=== PATIENT | female | born 1980 | race Caucasian/White ===

== ENCOUNTER 2021-03-28 21:55 | Emergency (ER) | payer SELFPAY ==
--- NOTE | 2021-03-28 22:59 | EDM.PDOC ---
ED [facility] GENERAL MEDICAL PROBLEM - General Chief Complaint: Skin Complaint Stated Complaint: RASH Time Seen by Provider: 03/28/21 22:09 Source of Information: Reports: Patient History Limitations: Reports: No Limitations - History of Present Illness INITIAL COMMENTS - FREE TEXT/NARRATIVE: 40-year-old female presents with pruritic rash to bilateral hand. She ran out of her prednisone yesterday and is currently taking Zyrtec and triamcinolone cream for her rash. She has an appointment to see Dr. Jordi Coughlin (client services assistant) at [place] on Tuesday for biopsy. She ran out of her prednisone yesterday. She denies fever, chills, purulent drainage. ROS: A 10-point review of systems, other than pertinent positives and negatives as stated per HPI, is otherwise negative Past medical history: No additional pertinent history Past Surgical history: No additional pertinent history Social history: No additional pertinent history Family history: No additional pertinent history PHYSICAL EXAM General: AOx4, GCS = 15, No distress HEENT: dry mucous membrane Neck: supple, no meningismus, no Kernig or Brudzinski Cardiac: S1S2 RRR Respiratory: CTAB, no crackles or rales, no wheezing Abdomen: Soft, nontender, no rebound or guarding, nondistended, no pulsatile mass. Back: nontender Skin: Patchy well-circumscribed erythematous rash to bilateral palms, no vesicles, negative Nikolsky sign Musculoskeletal: NVI distally, no deformity Neuro: No focal deficits, CN 2 - 12 WNL. - Related Data Allergies Allergy/AdvReac Type Severity Reaction Status Date / Time No Known Allergies Allergy Verified 03/28/21 22:11 Home Meds: Home Meds predniSONE [Prednisone] 50 mg PO DAILY #5 tablet 03/28/21 [Rx] Past Medical History Dermatologic History: Reports: Other (See Below) Other Dermatologic History: undiagnosed skin condition-seeing client services assistant in [facility] - Past Surgical History GI Surgical History: Reports: Cholecystectomy Social & Family History - Recreational Drug Use Recreational Drug Use: No ED ROS GENERAL - Review of Systems Review Of Systems: See Below (see dictation) ED EXAM, SKIN/RASH Exam: See Below Course - Vital Signs Last Recorded V/S: Last Vital Signs Temp 97.0 F 03/28/21 22:06 Pulse 92 03/28/21 22:06 Resp 16 03/28/21 22:06 BP 173/105 H 03/28/21 22:06 Pulse Ox 96 03/28/21 22:06 Departure - Departure Time of Disposition: 22:57 Disposition: Home, Self-Care 01 Condition: Good Clinical Impression: Pruritic rash - Discharge Information *PRESCRIPTION DRUG MONITORING PROGRAM REVIEWED*: Not Applicable *COPY OF PRESCRIPTION DRUG MONITORING REPORT IN PATIENT DEE: Not Applicable Prescriptions: predniSONE [Prednisone] 50 mg PO DAILY #5 tablet Instructions: Rash, Adult Referrals: Jeison Coughlin NP [Ordering Only Provider] - 03/30/21 Additional Instructions: The need for follow-up, as well as the timing and circumstances, are variable depending upon the specifics of your emergency department visit. If you don't have a primary care physician on staff, we will provide you with a referral. We always advise you to contact your personal physician following an emergency department visit to inform them of the circumstance of the visit and for follow-up with them and/or the need for any referrals to a consulting specialist. The emergency department will also refer you to a specialist when appropriate. This referral assures that you have the opportunity for follow-up care with a specialist. All of these measure are taken in an effort to provide you with optimal care, which includes your follow-up. Under all circumstances we always encourage you to contact your private physician who remains a resource for coordinating your care. When calling for follow-up care, please make the office aware that this follow-up is from your recent emergency room visit. If for any reason you are refused follow-up, please contact the [facility] Emergency Department at and asked to speak to the emergency department charge nurse. If you do not have a primary care doctor, please follow up with the clinics below within 3-[address] Praveen Cornejo - Dermatology [facility] [address] [place] [address], [address] [place] [address] Sepsis Event Note (ED) - Evaluation Sepsis Screening Result: No Definite Risk - Focused Exam Vital Signs: Vital Signs Temp Pulse Resp BP Pulse Ox 03/28/21 22:06 97.0 F 92 16 173/105 H 96
--- NOTE | 2021-03-29 12:41 | PCM.SN.2 ---
- Free Text/Narrative Note: Patient was seen last night by my colleague and was sent prescription of prednisone but was sent to the wrong pharmacy change of pharmacy for patient.
== END 2021-03-28 23:00 | disposition home or self-care (01) ==
LOC: MW.ED 21:55
DX: L29.9 Pruritus, unspecified (principal)
CPT/HCPCS: 99282

== ENCOUNTER 2021-04-03 16:58 | Emergency (ER) | payer SELFPAY ==
[2021-04-03] MEDS ORDERED: methylPREDNISolone Sodium Succinate 125 MG/2 ML SDV IM ONE (18:24)
--- NOTE | 2021-04-03 18:27 | EDM.PDOC ---
ED [facility] GENERAL MEDICAL PROBLEM - General Chief Complaint: Allergic Reaction Stated Complaint: RASH, THROAT CLOSING Time Seen by Provider: 04/03/21 18:24 Source of Information: Reports: Patient History Limitations: Reports: No Limitations - History of Present Illness INITIAL COMMENTS - FREE TEXT/NARRATIVE: HISTORY AND PHYSICAL: History of present illness: Patient is a 40-year-old female who presents to the emergency room with complaints of a pruritic rash that she has had for the past few months. She states she has been seen by her primary care provider and ultimately referred to a exchange trouble shooter in [place]. She was given 2 separate courses of steroids and noticed while she was on the steroids the rash improved. Was seen in the ER last week due to having ran out of her prednisone was given a 5-day course. Rash improved although her steroid has ran out as of yesterday. She states the pruritic rash has returned and she would like a refill until she can see her álvaro matologist in [place]. Patient denies any fever, chills, headache, change in vision, syncope or near syncope. Denies any chest pain, back pain, shortness of breath or cough. Denies any abdominal pain, nausea, vomiting, diarrhea, constipation or dysuria. Has not noted any blood in urine or stool. Patient has been eating and drinking appropriately. No recent travel or sick contacts. Review of systems: As per history of present illness and below otherwise all systems reviewed and negative. Past medical history: As per history of present illness and as reviewed below otherwise noncontributory. Surgical history: As per history of present illness and as reviewed below otherwise noncontributory. Social history: See social history for further information Family history: As per history of present illness and as reviewed below otherwise noncontributory. Physical exam: General: Well developed and well nourished. Alert and orientated x 3. Nontoxic in appearance and in no acute distress. Vital signs are stable and have been reviewed by me. Nursing notes were reviewed. HEENT: Atraumatic, normocephalic, pupils equal and reactive bilaterally, negative for conjunctival pallor or scleral icterus, mucous membranes moist, TMs normal bilaterally, throat clear, neck supple, nontender, trachea midline. No drooling or trismus noted. No meningeal signs. No hot potato voice noted. Lungs: Clear to auscultation bilaterally. No wheezes, rales, or rhonchi. Chest nontender. Normal work of breathing, no accessory muscles used. Heart: S1S2, regular rate and rhythm without overt murmur, gallops, or rubs. No JVD. No peripheral edema Abdomen: Soft, nondistended, nontender. Normoactive bowel sounds. Negative for masses or costovertebral tenderness. Skin: Raised pruritic rash to upper extremities and trunk. Intact, warm, dry. No lesions noted. Hematologic: No petechiae or purpra. Mucosa appropriate color and normal nail bed color and refill. Extremities: Atraumatic, moves all extremities per self without difficulty or deficits, negative for cords or calf pain. Neurovascular unremarkable. Neuro: Awake, alert, oriented. Cranial nerves II through XII unremarkable. Cerebellum unremarkable. Motor and sensory unremarkable throughout. Exam nonfocal. Psychiatric: Mood and affect are appropriate. Normal thought process. Answering questions appropriately. Please note that the patient was seen and evaluated during the 2019 SARS-CoV-2 novel coronavirus pandemic period. Community viral transmission is ongoing at time of this encounter and the emergency department is operating under pandemic response procedures. Medical Decision Making: Patient states symptoms improve with the steroid. We will do a short course taper with the intent she is following up with her exchange trouble shooter in [place]. She was instructed by her Derm to take Pepcid daily. I have talked with the patient about today's findings, in addition to providing specific details for plan of care. Reassessment at the time of disposition demonstrates that the patient is in no acute distress. The patient is stable for discharge, counseling was provided and we discussed in great detail signs and symptoms that would prompt them to return to the Emergency Department. Medication, follow up and supportive care measures were reviewed and discussed. Voices understanding and is agreeable to plan of care. Denies any further questions or concerns at this time. Diagnostics: None Therapeutics: Solu-Medrol Prescription: Prednisone Impression: Pruritic rash Plan: 1. Continue to monitor for possible exposures/triggers/foods. 2. While symptomatic continue to routinely take Benadryl 50mg every 4-6 hours and Zantac 150mg twice daily. Take the steroid as prescribed. 3. You may use topical calamine lotion, cool tempid oatmeal baths, Aveeno bath/lotions. 4. Consider formal allergy testing or following up with Dermatology as we discussed. 5. Return to the ED as needed and as discussed. Definitive disposition and diagnosis as appropriate pending reevaluation and review of above. - Related Data Allergies Allergy/AdvReac Type Severity Reaction Status Date / Time No Known Allergies Allergy Verified 04/03/21 18:15 Home Meds: Home Meds predniSONE [Prednisone] 50 mg PO DAILY #5 tablet 03/29/21 [Rx] predniSONE [Prednisone] 1 dose PO DAILY 12 Days #30 tab 04/03/21 [Rx] Past Medical History Dermatologic History: Reports: Other (See Below) Other Dermatologic History: undiagnosed skin condition-seeing exchange trouble shooter in [facility] - Infectious Disease History Infectious Disease History: Reports: Chicken Pox - Past Surgical History GI Surgical History: Reports: Cholecystectomy ED ROS ALLERGIC REACTION - Review of Systems Review Of Systems: Comprehensive ROS is negative, except as noted in HPI. ED EXAM GENERAL NO PERIP PULSE - Physical Exam Exam: See Below (See dictation) Course - Vital Signs Last Recorded V/S: Last Vital Signs Temp 97.8 F 04/03/21 18:15 Pulse 90 04/03/21 18:15 Resp 18 04/03/21 18:15 BP 168/95 H 04/03/21 18:15 Pulse Ox 95 04/03/21 18:15 - Orders/Labs/Meds Meds: Medications Discontinued Medications Generic Name Dose Route Start Last Admin Trade Name Freq PRN Reason Stop Dose Admin Methylprednisolone Sodium Succinate 125 mg 04/03/21 18:24 Methylprednisolone Sodium Succinate 125 Mg/2 Ml Sdv IM 04/03/21 18:25 ONETIME ONE Departure - Departure Time of Disposition: 18:26 Disposition: Home, Self-Care 01 Clinical Impression: Pruritic rash - Discharge Information Instructions: [place], [id number] Referrals: PCP,None [Primary Care Provider] - Forms: ED Department Discharge Additional Instructions: The following information is given to patients seen in the emergency department who are being discharged to home. This information is to outline your options for follow-up care. We provide all patients seen in our emergency department wit h a follow-up referral. The need for follow-up, as well as the timing and circumstances, are variable depending upon the specifics of your emergency department visit. If you don't have a primary care physician on staff, we will provide you with a referral. We always advise you to contact your personal physician following an emergency department visit to inform them of the circumstance of the visit and for follow-up with them and/or the need for any referrals to a consulting specialist. The emergency department will also refer you to a specialist when appropriate. This referral assures that you have the opportunity for follow-up care with a specialist. All of these measure are taken in an effort to provide you with optimal care, which includes your follow-up. Under all circumstances we always encourage you to contact your private physician who remains a resource for coordinating your care. When calling for follow-up care, please make the office aware that this follow-up is from your recent emergency room visit. If for any reason you are refused follow-up, please contact the [facility] Emergency Department at and asked to speak to the emergency department charge nurse. [facility] [address] [place] [address] [place] [address] Thank you for choosing the [facility] emergency department in [place] for your medical needs today. It was a pleasure caring for you. Today you were seen in the emergency department for hives/rash [facility] 1. Continue to monitor for possible exposures/triggers/foods. 2. While symptomatic continue to routinely take Benadryl 50mg every 4-6 hours and Zantac or Pepcid as directed. Take the steroid as prescribed. 3. You may use topical calamine lotion, cool tempid oatmeal baths, Aveeno bath/lotions. 4. Consider formal allergy testing or following up with Dermatology as we discussed. 5. Return to the ED as needed and as discussed. Sepsis Event Note (ED) - Evaluation Sepsis Screening Result: No Definite Risk - Focused Exam Vital Signs: Vital Signs Temp Pulse Resp BP Pulse Ox 04/03/21 18:15 97.8 F 90 18 168/95 H 95
== END 2021-04-03 18:43 | disposition home or self-care (01) ==
LOC: MW.ED 16:58
DX: L29.9 Pruritus, unspecified (principal)
CPT/HCPCS: 96372; 99282; J2930

== ENCOUNTER 2021-09-18 21:00 | Emergency (ER) | payer SELFPAY ==
[2021-09-18] MEDS ORDERED: Sodium Chloride 0.9% 10 ML Syringe FLUSH PRN (21:26)
[2021-09-18] MEDS ORDERED: Sodium Chloride 0.9% 2.5 ML Syringe FLUSH PRN (21:26)
[2021-09-18] MEDS ORDERED: Ondansetron 4 MG/2 ML SDV IVPUSH ONE (21:29)
[2021-09-18] MEDS ORDERED: Sodium Chloride 0.9% 1,000 ML IV ONE (21:29)
[2021-09-18] MEDS ORDERED: Ketorolac 30 MG/ML SDV IVPUSH ONE (21:29)
[2021-09-18 22:01] LABS: BLOOD UREA NITROGEN,BUN 12 mg/dL (7.0-18.0); CARBON DIOXIDE,CO2 27.5 mmol/L (21.0-32.0); CHLORIDE,CL 103 mmol/L (98-107); GLUCOSE RANDOM 143 mg/dL (74-106); POTASSIUM,K 3.6 mmol/L (3.5-5.1); SODIUM,NA 140 mmol/L (136-145)
[2021-09-18] MEDS ORDERED: Iopamidol 755 MG/ML 500 ML Multipack Bottle IVPUSH ONE (22:30)
[2021-09-18 22:59] LABS: CORONAVIRUS COVID-19 NAA NEGATIVE (NEGATIVE); INFLUENZA A NAA NEGATIVE (NEGATIVE); INFLUENZA B NAA NEGATIVE (NEGATIVE)
[2021-09-18] MEDS ORDERED: Acetaminophen/oxyCODONE 325-5 MG Tab PO ONE (23:42)
[2021-09-18] MEDS ORDERED: Sulfamethoxazole/Trimethoprim 800-160 MG Tab PO ONE (23:43)
== END 2021-09-18 23:54 | disposition home or self-care (01) ==
LOC: MW.ED 21:00
DX: N39.0 Urinary tract infection, site not specified (principal); Z90.49 Acquired absence of other specified parts of digestive tract; Z20.822 Contact with and (suspected) exposure to COVID-19; Z79.899 Other long term (current) drug therapy
CPT/HCPCS: 0240U; 36415; 74177; 80053; 81001; 81025; 83605; 83690; 83735; 85025; 85610; 96374; 96375; 99284; A9270; J1885; J2405; J3490; J7030; Q9967

== ENCOUNTER 2021-12-22 20:49 | Emergency (ER) | payer SELFPAY ==
[2021-12-22] MEDS ORDERED: Acetaminophen/oxyCODONE 325-5 MG Tab PO ONE (22:03)
[2021-12-22] MEDS ORDERED: Amoxicillin/Clavulanate K 875-125 MG Tab PO ONE (22:03)
== END 2021-12-22 22:18 | disposition home or self-care (01) ==
LOC: MW.ED 20:49
DX: K08.89 Other specified disorders of teeth and supporting structures (principal)
CPT/HCPCS: 99282; A9270

== ENCOUNTER 2022-06-02 13:20 | Emergency (ER) | payer SELFPAY ==
[2022-06-02] MEDS ORDERED: Orphenadrine 60 MG/2 ML Inj IM ONE (16:31)
[2022-06-02] MEDS ORDERED: Ketorolac 30 MG/ML SDV IM ONE (16:31)
== END 2022-06-02 16:49 | disposition home or self-care (01) ==
LOC: MW.ED 13:20
DX: S09.90XA Unspecified injury of head, initial encounter (principal); S13.4XXA Sprain of ligaments of cervical spine, initial encounter; Z79.899 Other long term (current) drug therapy; Z90.49 Acquired absence of other specified parts of digestive tract; W00.0XXA Fall on same level due to ice and snow, initial encounter
CPT/HCPCS: 70450; 72125; 96372; 99283; J1885; J2360